=== PATIENT | female | born 1985 | race Caucasian/White ===

== ENCOUNTER → 2017-06-22 | Outpatient (CLI) | payer BC ==
[~2017-06-22] MED LIST: ALBUAER19 INH; GADAVIST IV PRN; LEVO25TA34 PO; MTR600X PO; OXYC-643 PO; PEDICHW50 PO
--- NOTE | 2017-06-22 09:36 | DIAGNOSTIC IMAGING REPORT ---
BRAIN COMBO CLINICAL HISTORY: 31 years-old Female presenting with frequent headaches for 3 months. TECHNIQUE: Multisequence, multiplanar MR imaging of the brain was performed before and after the administration of intravenous contrast. IV contrast: 10 mL of Gadavist. COMPARISON: None. FINDINGS: Ventricles and sulci normal in size. Brain parenchyma normal in appearance with preserved saravia-white differentiation. No mass effect or midline shift. No restricted diffusion to suggest acute ischemia. No hemorrhage. No extra-axial fluid collection. T2 skull base flow voids preserved. No abnormal parenchymal enhancement. Bone marrow signal intensity within the calvarium within normal limits. IMPRESSION: No acute intracranial pathology. No abnormal enhancement. Electronically signed by: Hung Amor M.D. 06/22/2017 9:35 AM Dictated Date/Time: 06/22/2017 9:31 AM
== END | disposition home or self-care (01) ==
LOC: C.MRI 08:41
PROVIDERS: ATTEND Family Medicine
DX: R51 Headache (principal)